=== PATIENT | male | born 1960 | race Caucasian/White ===

== ENCOUNTER → 2017-03-21 | Outpatient (CLI) | payer OTHER ==
--- NOTE | 2017-03-21 08:04 | MR ---
EXAMINATION TYPE: MR knee RT wo con DATE OF EXAM: 03/21/2017 6:56 AM COMPARISON: NONE HISTORY: Rt knee pain TECHNIQUE: Multiplanar, multisequence imaging of the right knee is performed. FINDINGS: MEDIAL MENISCUS: Complex tear posterior horn medial meniscus extending into the meniscal body. Bucket -handle component is difficult to exclude. LATERAL MENISCUS: Anterior and posterior horns are intact without tear. CRUCIATE LIGAMENTS: The anterior and posterior cruciate ligaments are intact and unremarkable. COLLATERAL LIGAMENTS: The medial collateral ligament and lateral collateral ligament complex are intact and unremarkable. EXTENSOR MECHANISM: Visualized quadriceps and patellar tendons are intact. EFFUSION: No evidence for joint effusion. POPLITEAL CYST: No popliteal/stevens cyst. TRICOMPARTMENT SPACES: Moderate patellofemoral joint space narrowing with changes of chondromalacia p atella. CARTILAGE: The articular cartilage is maintained without abnormal signal or full-thickness defect. BONE MARROW SIGNAL: No focal abnormal marrow signal is appreciated: OTHER: No additional significant abnormality is appreciated. IMPRESSION: 1. Complex tear posterior horn and body medial meniscus with bucket-handle component difficult to exc lude. 2. Changes of chondromalacia patella.
== END ==
LOC: RADMRIMAIN 06:20
PROVIDERS: ATTEND Orthopaedic Surgery
DX: M23.221 Derangement of posterior horn of medial meniscus due to old tear or injury, right knee (principal); M22.41 Chondromalacia patellae, right knee

== ENCOUNTER → 2017-10-22 | Outpatient (CLI) | payer OTHER ==
[2017-10-22 08:44] LABS: Appearance,Urine Clear (Clear); Bilirubin,Urine Negative (Negative); CH 30.4; CHCM 33.6; Glucose,Urine (UA) Negative (Negative); HCT 42.7 % (39.0-53.0); HGB 14.4 gm/dL (13.0-17.5); Ketones,Urine Negative (Negative); Leukocyte Esterase,Urine Negative (Negative); MCH 30.7 pg (25.0-35.0); MCHC 33.8 g/dL (31.0-37.0); MCV 90.9 fL (80.0-100.0); Mean Platelet Volume 7.2; Nitrite,Urine Negative (Negative); PH, Urine 5.5 (5.0-8.0); Protein,Urine Trace (Negative); RBC 4.69 m/uL (4.30-5.90); RDW 14.5 % (11.5-15.5); Specific Gravity,Urine 1.022 (1.001-1.035); UA Billing (MACRO vs. MICRO) CHEM; Urobilinogen,Urine <2.0 mg/dL (<2.0); WBC 6.5 k/uL (3.8-10.6)
[2017-10-22 08:52] LABS: Prothrombin Time 10.1 sec (9.0-12.0)
[2017-10-22 08:58] LABS: ALT 38 U/L (21-72); AST 18 U/L (17-59); Alkaline Phosphatase 71 U/L (38-126); Anion Gap 10 mmol/L; Blood Urea Nitrogen 26 mg/dL (9-20); Calcium 9.5 mg/dL (8.4-10.2); Carbon Dioxide 27 mmol/L (22-30); Chloride 106 mmol/L (98-107); Glucose 100 mg/dL (74-99); Non-African American GFR(MDRD) >60 (>60 ml/min/1.73 sqM); Potassium 4.5 mmol/L (3.5-5.1); Sodium 143 mmol/L (137-145); Total Bilirubin 0.5 mg/dL (0.2-1.3); Total Protein 6.9 g/dL (6.3-8.2)
== END | disposition home or self-care (01) ==
LOC: LABPAT 07:52
PROVIDERS: ATTEND Orthopaedic Surgery
DX: Z01.812 Encounter for preprocedural laboratory examination (principal)
CPT/HCPCS: 80053; 81003; 85027; 85610; 85730; 87070

== ENCOUNTER → 2018-06-23 | Outpatient (CLI) | payer OTHER ==
--- NOTE | 2018-06-23 11:44 | US ---
EXAMINATION TYPE: US venous doppler duplex LE LT DATE OF EXAM: 06/23/2018 11:32 AM COMPARISON: NONE CLINICAL HISTORY: M25.562 left knee pain. Patient fell on left knee and has large bump/bruise. SIDE PERFORMED: Left TECHNIQUE: The lower extremity deep venous system is examined utilizing real time linear array sonog shay with graded compression, doppler sonography and color-flow sonography. VESSELS IMAGED: External Iliac Vein (EIV) Common Femoral Vein Deep Femoral Vein Greater Saphenous Vein * Femoral Vein Popliteal Vein Proximal Calf Veins (* superficial vessels) Grayscale, color doppler, spectral doppler imaging performed of the deep veins of the left lower extr emity. There is normal flow, compressibility, vascular waveforms. Left Leg: Negative for DVT Scanned over bump/bruise, just inferior to left knee and there is a 6.5 x 1.2 x 6.7 cm complex avascu lar fluid collection, most consistent with hematoma. IMPRESSION: 1. No sonographic evidence of deep venous thrombosis within the left lower extremity. 2. Complex elongated fluid collection along the tissue planes extending over 6.7 cm that is avascular over the patient's area of bruising most compatible with hematoma. Repeat ultrasound could be perfor med if there is no clinical improvement.
== END | disposition home or self-care (01) ==
LOC: RADUSWWP 11:10
PROVIDERS: ATTEND Orthopaedic Surgery
DX: S80.02XA Contusion of left knee, initial encounter (principal); I80.9 Phlebitis and thrombophlebitis of unspecified site; Z96.652 Presence of left artificial knee joint

== ENCOUNTER → 2018-12-29 | Outpatient (CLI) | payer OTHER ==
[~2018-12-29] MED LIST: REGADENOSON 0.4 MG/5 ML SYRINGE IV ONE
--- NOTE | 2018-12-29 11:24 | NM ---
EXAMINATION TYPE: NM stress lexiscan cardiolite DATE OF EXAM: 12/29/2018 COMPARISON: NONE HISTORY: History of asthma, hypertension, hypercholesteremia, and family history of coronary artery d isease presents with chest pain TECHNIQUE: After the intravenous administration of 10.3 mCi Tc 99m Sestamibi - Cardiolite resting SP ECT images acquired 50 minutes post injection. The patient received 0.4mg Lexiscan, 25.1 mCi Tc 99m Sestamibi - Stress images obtained [address] injection FINDINGS: Review of stress and rest SPECT images demonstrates no distinct perfusion abnormality. Gated analysi s shows normal wall motion with an estimated left ventricular ejection fraction of 64 %. IMPRESSION: No scintigraphic evidence for reversible ischemia.
--- NOTE | 2018-12-29 12:39 | EST ---
EXERCISE STRESS DATE OF SERVICE: 12/29/2018 AGE: 58 SEX: Male HT: 5'8" WT: 240 pounds PROTOCOL: Lexiscan Cardiolite STAGE: DURATION OF EXERCISE: HEART RATE REST: 88 BLOOD PRESSURE REST: 149/91 MAXIMUM HEART RATE ACHIEVED: 94 MAXIMUM BLOOD PRESSURE: 184/93 85% MPHR: 100% MPHR: METS: INDICATIONS: Chest pain. CLINICAL INFORMATION: Patient was given Lexiscan injection. Peak heart rate of 94 was achieved. Maximum blood pressure of 184/93 mmHg was noted. Resting EKG shows normal sinus rhythm with normal NV interval and QRS duration and normal ST-T waves. No ST-segment depression suggestive of ischemia is noted. FINAL IMPRESSION: There is no evidence of any ST-segment changes to suggest ischemia during Lexiscan injection. The results of the nuclear study will follow. DAVID / MYNOR: [id number] /
== END | disposition home or self-care (01) ==
LOC: RADNMMAIN 07:43
PROVIDERS: ATTEND Internal Medicine
DX: R07.9 Chest pain, unspecified (principal)
CPT/HCPCS: 93017; 78452; A9500; J2785

== ENCOUNTER → 2019-12-15 | Outpatient (CLI) | payer OTHER ==
--- NOTE | 2019-12-15 11:47 | CT ---
EXAMINATION TYPE: CT abdomen pelvis wo con DATE OF EXAM: 12/15/2019 COMPARISON: HISTORY: Left flank pain, hematuria CT DLP: 2811.2 mGycm Automated exposure control for dose reduction was used. TECHNIQUE: Helical acquisition of images was performed from the lung bases through the pelvis. FINDINGS: LUNG BASES: No significant abnormality is appreciated. LIVER/GB: Stable 2 cm hypodensity within the liver most typical of a cyst. PANCREAS: No significant abnormality is seen. SPLEEN: No significant abnormality is seen. ADRENALS: No significant abnormality is seen. KIDNEYS: There is a 3 mm proximal left ureteral calculus resulting in mild to moderate left hydroneph rosis. There appear to be 2 additional ureteral calculi measuring less than 5 mm at the level the mid to upper pelvis. No right renal calculi or hydronephrosis. ADENOPATHY: None visualized. OSSEOUS STRUCTURES: Multilevel hypertrophic and degenerative changes of vertebral column. BOWEL: Changes of diverticulosis. The bowel gas pattern is nonspecific with no obstruction. OTHER: There is a diaphragmatic hernia with peritoneal fat extending along the anterior thorax. Aorta of normal caliber. Bilateral fat-containing inguinal hernia. Fat-containing periumbilical hernia not ed. IMPRESSION: 1. Mild to moderate left hydronephrosis secondary to multiple less than 5 mm left ureteral calculi. 2. Suspect a diaphragmatic hernia anteriorly intraperitoneal fat extending into the anterior thorax.
== END | disposition home or self-care (01) ==
LOC: RADCTMAIN 11:16
PROVIDERS: ATTEND Internal Medicine
DX: N13.2 Hydronephrosis with renal and ureteral calculous obstruction (principal)
CPT/HCPCS: 74176

== ENCOUNTER 2019-12-18 08:13 | Emergency (ER) | payer OTHER ==
[2019-12-18 08:22] VITALS: RESP 18; TEMP 97.8
[2019-12-18] MEDS ORDERED: SODIUM CHLORIDE 0.9% 2,000 ML IV STA (08:31)
[2019-12-18] MEDS ORDERED: HYDROmorphone 1 MG/ML 1 ML SYRINGE IVP STA ×2 (08:31→11:45)
[2019-12-18] MEDS ORDERED: KETOROLAC 30 MG/ML 1 ML VIAL IVP STA (08:31)
[2019-12-18] MEDS ORDERED: ONDANSETRON 4 MG/2 ML VIAL IVP STA (08:31)
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
[2019-12-18 08:44] LABS: Basophils # (A) 0.1 k/uL (0-0.2); Basophils % (A) 0 %; Eosinophils # (A) 0.1 k/uL (0-0.7); Eosinophils % (A) 1 %; HCT 46.4 % (39.0-53.0); HGB 15.9 gm/dL (13.0-17.5); Lymphocytes # (A) 0.9 k/uL (1.0-4.8); Lymphocytes % (A) 8 %; MCH 30.6 pg (25.0-35.0); MCHC 34.2 g/dL (31.0-37.0); MCV 89.4 fL (80.0-100.0); Mean Platelet Volume 7.1; Monocytes # (A) 0.4 k/uL (0-1.0); Monocytes % (A) 3 %; Neutrophils # (A) 9.7 k/uL (1.3-7.7); Neutrophils % (A) 87 %; Platelet Count 323 k/uL (150-450); RBC 5.19 m/uL (4.30-5.90); RDW 13.1 % (11.5-15.5); WBC 11.2 k/uL (3.8-10.6)
[2019-12-18 08:58] LABS: INR 0.9 (<1.2); Prothrombin Time 9.5 sec (9.0-12.0)
[2019-12-18 08:59] LABS: Albumin 4.5 g/dL (3.5-5.0); Calcium 9.2 mg/dL (8.4-10.2); Total Protein 7.7 g/dL (6.3-8.2)
--- NOTE | 2019-12-18 09:19 | XR ---
EXAMINATION TYPE: XR KUB DATE OF EXAM: 12/18/2019 9:10 AM CLINICAL HISTORY: History of kidney stones with left lower quadrant pain. TECHNIQUE: Two Upright KUB images of the abdomen are obtained. COMPARISON: CT abdomen and pelvis 3 days from now.. FINDINGS: Scattered gas is seen in non-distended small bowel loops. Gas and fecal material is seen in non-distended colon. Rounded densities in left pelvis consistent with phleboliths redemonstrated. Th e obstructing 3 mm proximal left ureter calculus on CT is not clearly identified on plain film. Based on patient's symptoms it is likely progressing towards the bladder. Lung bases remain clear. No pneu moperitoneum. Osseous structures are intact. IMPRESSION: As above.
[2019-12-18 10:13] LABS: Appearance,Urine Clear (Clear); Bilirubin,Urine Negative (Negative); Blood,Urine Moderate (Negative); Color,Urine Yellow; Glucose,Urine (UA) 1+ (Negative); Ketones,Urine Negative (Negative); Leukocyte Esterase,Urine Negative (Negative); Mucus,Urine Occasional /hpf; Nitrite,Urine Negative (Negative); Protein,Urine 1+ (Negative); RBC,Urine >182 /hpf (0-5); Urobilinogen,Urine <2.0 mg/dL (<2.0); WBC,Urine <1 /hpf (0-5)
[2019-12-18 12:01] VITALS: BP 153/97; PULSE 87
== END 2019-12-18 12:02 | disposition home or self-care (01) ==
LOC: EC 08:13
DX: N20.1 Calculus of ureter (principal); E78.5 Hyperlipidemia, unspecified; I10 Essential (primary) hypertension; Z79.82 Long term (current) use of aspirin; Z79.899 Other long term (current) drug therapy; Z90.49 Acquired absence of other specified parts of digestive tract
CPT/HCPCS: 36415; 93005; 80053; 82150; 83690; 85025; 85610; 85730; 81001; 74018; 99285; 96374; 96375 ×2; 96376; 96361; J2405; J1885; J1170

== ENCOUNTER → 2023-10-15 | Outpatient (CLI) | payer MEDICARE, BC ==
[2023-10-15 08:29] LABS: African American GFR (CKD) >90 (>60 ml/min/1.73 sqM); Blood Urea Nitrogen 22 mg/dL (9-20); Non-African American GFR(CKD) >90 (>60 ml/min/1.73 sqM)
--- NOTE | 2023-10-15 16:10 | CT ---
EXAMINATION TYPE: CT abdomen pelvis wo/w con DATE OF EXAM: 10/15/2023 COMPARISON: 12/15/2019 HISTORY: 63-year-old male R31.0, gross hematuria TECHNIQUE: Contiguous axial scanning of the abdomen and pelvis following administration of 100 ml Iso jm 300 IV contrast. Delayed images through the kidneys and coronal/sagittal reconstructions perform ed. CT DLP: 3681.6 mGycm Automated exposure control for dose reduction was used. FINDINGS: Heart normal size without pericardial effusion. Lung bases clear without pleural effusion. Couple tiny subcentimeter hypodensities in the liver too small for accurate CT characterization, like ly small cysts. There is a larger 3.5 cm central right liver lobe cyst. Portal venous system is paten t. No biliary ductal dilatation. Gallbladder, adrenal glands, kidneys, spleen, and pancreas within normal limits. No dilated small bowel, free fluid, or free air. No mesenteric or retroperitoneal lymphadenopathy. Tiny fatty and clinical hernia. Mild scattered stool. Left-sided colonic diverticulosis. No pericolonic inflammatory change. Bladder nondistended. Prostate gland mildly enlarged at 4.6 cm wide. No abnormal fluid collection in the pelvis or pelvic lymphadenopathy. Bones: Degenerative bony ankylosis left SI joint. Moderate degenerative disc disease L5-S1. Facet arthropathy lower lumbar spine. IMPRESSION: 1. NO NEPHROLITHIASIS OR HYDRONEPHROSIS. NO SUSPICIOUS RENAL MASS IS IDENTIFIED. 2. MILD PROSTATOMEGALY OF 4.6 CM WIDE. 3. THE BLADDER IS COLLAPSED AND NOT WELL ASSESSED BY CT. 4. LEFT-SIDED COLONIC DIVERTICULOSIS WITHOUT EVIDENCE FOR ACUTE DIVERTICULITIS.
== END | disposition home or self-care (01) ==
LOC: RADCTMAIN 07:52
PROVIDERS: ATTEND Urology
DX: R31.0 Gross hematuria (principal); N40.0 Benign prostatic hyperplasia without lower urinary tract symptoms; N32.89 Other specified disorders of bladder; K57.30 Diverticulosis of large intestine without perforation or abscess without bleeding
CPT/HCPCS: 82565; 84520; 74178; 36415; Q9967

== ENCOUNTER → 2023-12-20 | Outpatient (CLI) | payer MEDICARE, BC ==
[~2023-12-20] MED LIST changes: -REGADENOSON 0.4 MG/5 ML SYRINGE IV ONE; +REGADENOSON 0.4 MG/5 ML SYRINGE IV PRN
--- NOTE | 2023-12-20 15:18 | NM ---
EXAMINATION TYPE: NM stress lexiscan cardiolite DATE OF EXAM: 12/20/2023 COMPARISON: NONE CLINICAL INDICATION: Male, 63 years old with history of ABN ECG; TECHNIQUE: After the intravenous administration of 10.9 mCi Tc 99m Sestamibi - Cardiolite resting SP ECT images acquired 55 minutes post injection. The patient received 0.4mg Lexiscan, 25.8 mCi Tc 99m Sestamibi - Stress images obtained [address] injection FINDINGS: Review of stress and rest SPECT images demonstrates a small fixed perfusion defect along the mid infe rolateral wall. No discrete reversibility is seen. Gated analysis shows decreased augmentation of thi s portion of the wall. Estimated left ventricular ejection fraction of 52 %. TID is normal at 1.03. IMPRESSION: 1. Small fixed perfusion defect mid inferolateral wall. Correlate for small area of previous infarct. 2. No scintigraphic evidence for inducible ischemia. 3. Estimated LVEF is borderline to mildly diminished at 52%.
--- NOTE | 2023-12-20 18:33 | CA ---
Lexiscan Nuclear Stress Test Report Name: Kai Gilliland Exam Date: 12/20/2023 09:53 Exam Location: [facility] Ht (in): 68 Wt (lb): 255 BSA: 2.27 Ordering Phys: Marco A Griffith DO Referring Phys: Marco A Griffith DO Technologist: RENATO, Age: 63 Gender: M : 1960 Procedure CPT: Indications: R94.31 ABNORMAL ELECTROCARDIOGRAM [ECG] [EKG] ICD-10 Codes: Patient History: Abnormal ekg Medications: Meds past 24 hrs: Pretest Chest Pain: STRESS TEST Lexiscan Protocol Exercise Duration (min:sec): 01:[address] Depressions (mm): Angina Score: Valdez Score: Resting HR (bpm): 65 Peak HR (bpm): 87 Resting BP (mmHg): 159 / 80 Peak BP (mmHg): 162 / 76 MPHR: 155 Target HR: 132 % MPHR: 56 METS: 1.0 Total Dose: Peak Dose: Atropine: Double Product: 55384 BP Response: Stress Termination: Reached target heart rate Stress Symptoms: No chest pain or symptoms Stress Summary: ECG ANALYSIS Resting ECG: Stress ECG: CONCLUSIONS Nonspecific EKG changes in response to Lexiscan Dr. Alexander Caballero MD (Electronically Signed) Final Date: 20 December 2023 18:32
== END | disposition home or self-care (01) ==
LOC: RADNMMAIN 09:39
PROVIDERS: ATTEND Internal Medicine
DX: R94.31 Abnormal electrocardiogram [ECG] [EKG] (principal)
CPT/HCPCS: 93017; 78452; A9500; J2785

== ENCOUNTER → 2024-02-06 | Outpatient (CLI) | payer MEDICARE, BC ==
[2024-02-06 11:49] LABS: NT-Pro-B-Type Natriuretic Pept 119 pg/mL (0-125)
[2024-02-06 11:50] LABS: Albumin 4.2 g/dL (3.8-4.9); BUN/Creat Ratio 22.67 Ratio (12.00-20.00); Blood Urea Nitrogen 20.4 mg/dL (9.0-27.0); Calcium 9.5 mg/dL (8.7-10.3); Carbon Dioxide 23.5 mmol/L (21.6-31.8); Chloride 105 mmol/L (96-109); Glucose 145 mg/dL (70-110); Phosphorus 3.9 mg/dL (2.4-5.1); Potassium 4.2 mmol/L (3.5-5.5); Sodium 141 mmol/L (135-145)
== END | disposition home or self-care (01) ==
LOC: LABWHC1 08:07
PROVIDERS: ATTEND Internal Medicine
DX: I50.9 Heart failure, unspecified (principal); R06.02 Shortness of breath
CPT/HCPCS: 36415; 80069; 83880

== ENCOUNTER → 2024-04-10 | Outpatient (CLI) | payer MEDICARE, BC ==
[2024-04-10 15:25] LABS: Basophils # (A) 0.06 X 10*3/uL (0.00-0.10); Basophils % (A) 0.8 %; Eosinophils # (A) 0.21 X 10*3/uL (0.04-0.35); HCT 42.8 % (39.6-50.0); HGB 14.2 g/dL (13.0-17.0); Lymphocytes # (A) 1.74 X 10*3/uL (0.90-5.00); Lymphocytes % (A) 24.5 %; MCH 29.9 pg (27.0-32.0); MCHC 33.2 g/dL (32.0-37.0); MCV 90.1 FL (80.0-97.0); Mean Platelet Volume 9.9 FL (9.5-12.2); Monocytes % (A) 8.5 %; NRBC Per 100 WBC 0 X 10*3/uL (0.00-0.01); Neutrophils # (A) 4.45 X 10*3/uL (1.80-7.70); Neutrophils % (A) 62.6 %; Platelet Count 336 X 10*3/uL (140-440); RBC 4.75 X 10*6/uL (4.40-5.60); RDW 13.2 % (11.5-14.5)
[2024-04-10 15:42] LABS: BUN/Creat Ratio 22.45 Ratio (12.00-20.00); Blood Urea Nitrogen 24.7 mg/dL (9.0-27.0); Calcium 9.3 mg/dL (8.7-10.3); Carbon Dioxide 25.7 mmol/L (21.6-31.8); Chloride 104 mmol/L (96-109); Glucose 151 mg/dL (70-110); Potassium 4.1 mmol/L (3.5-5.5); Sodium 143 mmol/L (135-145)
== END | disposition home or self-care (01) ==
LOC: LABPAT 07:50
PROVIDERS: ATTEND Urology
DX: Z01.812 Encounter for preprocedural laboratory examination (principal); N20.0 Calculus of kidney; R31.0 Gross hematuria
CPT/HCPCS: 36415; 80048; 85025

== ENCOUNTER 2024-04-16 05:41 | Day surgery (SDC) | payer MEDICARE, BC ==
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
[2024-04-14 09:42] VITALS: BMI 39.5
[~2024-04-16 05:41] MED LIST changes: +LIDOCAINE 1% (10MG/ML) FOR IV START INTRADERMA PRN; -REGADENOSON 0.4 MG/5 ML SYRINGE IV PRN; +droPERidol 5 MG/2 ML VIAL IVP ONE
--- NOTE | 2024-04-16 06:23 | XR ---
EXAMINATION TYPE: XR KUB DATE OF EXAM: 04/16/2024 6:17 AM CLINICAL HISTORY: Kidney stone TECHNIQUE: Two supine KUB images of the abdomen are obtained. COMPARISON: CT abdomen and pelvis October 15, 2023. FINDINGS: Central approximate 8 mm calculus right kidney is redemonstrated. No definitive left-sided nephrolithiasis. Overall nonobstructive bowel gas pattern. Osseous structures are intact. IMPRESSION: As above.
[2024-04-16] MEDS: LACTATED RINGERS 1,000 ML IV SCH (06:57)
[2024-04-16] MEDS: DEXAMETHASONE SOD PHOSPHATE 4 MG/ML 1 ML VIAL IV ONE (07:04)
[2024-04-16] MEDS: ONDANSETRON 4 MG/2 ML VIAL IVP ONE (07:04)
[2024-04-16 07:12] LABS: Glucose,Whole Blood 143 mg/dL (70-110)
[2024-04-16] MEDS ORDERED: PHENYLEPHRINE 10 MG/ML VIAL ONE (07:34)
[2024-04-16] MEDS ORDERED: LIDOCAINE 1% INJ 10MG/ML (20 ML MDV) ONE (07:34)
[2024-04-16] MEDS ORDERED: GLYCOPYRROLATE 0.2 MG/ML 2 ML VIAL ONE (07:34)
[2024-04-16] MEDS ORDERED: SUCCINYLCHOLINE CHLORIDE 200 MG/10 ML VIAL IV ONE (07:34)
[2024-04-16] MEDS ORDERED: ROCURONIUM 10 MG/ML (5 ML VIAL) IV ONE (07:34)
[2024-04-16] MEDS ORDERED: NEOSTIGMINE 1 MG/ML 10 ML VIAL ONE (07:34)
[2024-04-16] MEDS ORDERED: PROPOFOL 10 MG/ML 20 ML VIAL IV ONE (07:34)
[2024-04-16] MEDS ORDERED: MIDAZOLAM 2 MG/2 ML VIAL ONE (07:34)
[2024-04-16] MEDS ORDERED: fentaNYL (PF) 50 MCG/ML 2 ML AMP ONE (07:34)
[2024-04-16] MEDS: IOPAMIDOL-370 100ML BTL MISCELLANE ONE ×2 (08:00)
[2024-04-16] MEDS: LACTATED RINGERS 1,000 ML IV ONE (08:59)
--- NOTE | 2024-04-16 09:39 | FL ---
Fluoroscopy INDICATION: Right ureteral stone FINDINGS: Fluoroscopy time: 2 minutes 19 seconds. Total dose area product (DAP) in uGy*m?, mGy*cm? (or similar): 3.07 Images obtained: 11. IMPRESSION: 1. Documentation of fluoroscopy.
[2024-04-16 09:43] LABS: Glucose,Whole Blood 183 mg/dL (70-110)
--- NOTE | 2024-04-16 09:47 | P.OP ---
Date of Procedure: 04/16/24 Preoperative Diagnosis: Gross hematuria, right renal calculus Postoperative Diagnosis: Same Procedure(s) Performed: Cystoscopy, bilateral retrograde pyelograms, right ureteroscopy with Holmium laser lithotripsy and stone basketing, right ureteral stent insertion Anesthesia: ADDIS Surgeon: Donell Yepez Estimated Blood Loss (ml): 10 IV fluids (ml): 1,000 Pathology: other (Right renal calculus fragments, sent for chemical analysis) Condition: stable Disposition: PACU Indications for Procedure: The patient is a 64-year-old white male who presented in late 2022 with gross hematuria, associated with left flank pain. CT scan showed right renal calcifications, and a could not be determined whether these were kidney stones or vascular in nature. Urine cytology was negative. The patient was recently seen back in the office, and has experienced persistent intermittent gross hematuria. Operative Findings: 6 mm right renal calculus, successfully treated with laser lithotripsy and stone basketing. Description of Procedure: The patient was taken to the operating room and placed in the dorsolithotomy position, with legs supported in Sameer stirrups. The external genitalia was prepped and draped sterilely. [place] sounds were used to dilate the urethral meatus, as it was small and would not accommodate the cystoscopic sheath. The 30 lens was used to introduce the 21-Lithuanian Childress cystoscopic sheath through the urethra and into the bladder under direct vision. The prostatic urethra showed evidence of mild lateral lobe enlargement and a high median bar. The bladder was examined in its entirety. Both ureteral orifices were normal anatomic location and configuration, and clear urine effluxed from both. No tumors or foreign bodies were seen. Using a 10 Lithuanian cone-tip catheter, bilateral retrograde pyelograms were performed in the standard fashion. The course of each ureter appeared normal. The left intrarenal collecting system appeared normal, with no evidence of hydronephrosis. There were no filling defects. The system drained promptly. On the right side, there appeared to be slight irregularity within an upper pole calyx. A 0.038 inch Glidewire was passed through the cystoscope. The right ureteral orifice was cannulated, and the Glidewire was advanced up to the renal pelvis. The cystoscope was removed, and the Childress Offbeat Guidesa flexible ureteroscope was passed over the wire, up to the right renal pelvis. A calculus was identified within an upper pole calyx, but visualization was poor and it was not possible to relocate the calculus. Therefore, the Glidewire was passed through the ureteroscope, which was removed, and an 11/13-Lithuanian ureteral access catheter was passed over the wire, up to the proximal ureter. The [employer] flexible ureteroscope was then passed through the ureteral access catheter sheath and advanced under direct vision up to the right renal pelvis. Again, the calculus could not be identified. Contrast was injected, and the calculus was seen as a filling defect within an upper pole calyx. With difficulty, the calculus was visualized. The 272 micron Holmium laser probe was passed through the ureteroscope, and lithotripsy was performed using a dusting mode. The periphery of the stone was lasered, until the main calculus measured approximately 3 mm in size. The remaining calculus fragments were all smaller than 1 mm, and a 1.9 Lithuanian 0 tip nitinol basket was used to remove the 3 mm calculus fragment, which was saved and sent for chemical analysis. At this point, fluoroscopy showed evidence of possible contrast extravasation. The Glidewire was passed through the ureteral access catheter sheath, which was then removed. A 5 Lithuanian open- ended catheter was passed over the wire, up to the right renal pelvis. Contrast was injected, and there was no evidence of contrast extravasation. Pyelovenous backflow is suspected to have given the appearance of possible extravasation. The Glidewire was backloaded into the cystoscope, which was passed into the bladder. A 26 cm, 4.8 Lithuanian double-J ureteral stent was placed over the wire. Proper stent positioning was verified fluoroscopically and endoscopically. The bladder was emptied and the cystoscope removed. The string attached to the stent was secured to the patient's penis using a Tegaderm dressing. The patient tolerated the procedure well and was taken to the recovery room in stable condition. [facility] Report: Procedure Acuity: Elective Stone Size and Location: 6 mm, right upper pole calyx Ureteral Dilation: No Ureteral Access Sheath Used: Yes Stone Sent for Analysis: Yes All Stones/Fragments Were Removed with a Basket: Yes Complications: No Preoperative Antibiotics Given: Yes Stent Placed: Yes If Stent Placed, Was String Left Attached: Yes If Stent Placed, When is it to be Removed: 1 week Discharge Medications: Toradol, tamsulosin
[2024-04-16 10:12] VITALS: RESP 16; TEMP 98
[2024-04-16] MEDS: HYDROmorphone 0.5 MG/0.5 ML SYRINGE IVP PRN (10:54)
[2024-04-16] MEDS ORDERED: KETOROLAC 15 MG/ML 1 ML VIAL ONE (11:21)
[2024-04-16] MEDS: KETOROLAC 15 MG/ML 1 ML VIAL IVP ONE (11:23)
--- NOTE | 2024-04-16 11:24 | XR ---
EXAMINATION TYPE: XR KUB portable DATE OF EXAM: 04/16/2024 COMPARISON: 04/16/2024 INDICATION: Low abdominal pain back discomfort TECHNIQUE: Single view abdomen FINDINGS: There is a normal bowel gas pattern. Psoas margins are normal. No organomegaly is present. Right ureteral stent is present. Appears to be a 0.7 cm calcification inferior pole right kidney. IMPRESSION: 1. Unremarkable Abdomen 2. Right ureteral stent. 3. 0.7 cm inferior pole right renal calcification
[2024-04-16] MEDS ORDERED: HYDROcodone/APAP 5-325MG 1 EACH TAB ONE (12:59)
[2024-04-16] MEDS: HYDROcodone/APAP 5-325MG 1 EACH TAB PO ONE (13:00)
[2024-04-16 15:05] VITALS: PULSE 96
[2024-04-16 15:59] VITALS: BP 166/65
== END 2024-04-16 15:44 | disposition home or self-care (01) ==
LOC: OR 05:41
PROVIDERS: ATTEND Urology
DX: N20.0 Calculus of kidney (principal); I10 Essential (primary) hypertension; E78.5 Hyperlipidemia, unspecified; E11.9 Type 2 diabetes mellitus without complications; J45.909 Unspecified asthma, uncomplicated; Z90.89 Acquired absence of other organs; Z90.49 Acquired absence of other specified parts of digestive tract; Z98.890 Other specified postprocedural states; Z79.82 Long term (current) use of aspirin; Z79.84 Long term (current) use of oral hypoglycemic drugs; Z96.652 Presence of left artificial knee joint
CPT/HCPCS: 82365; 74420; 74018; 52356; C2625; C1758 ×2; C1769; J2250; J0330; J1100; J2710; J0690; J2405; J2001; J3010; J1885; J2704; J1170; Q9967; J2371

== ENCOUNTER → 2024-05-29 | Outpatient (CLI) | payer MEDICARE, BC ==
--- NOTE | 2024-05-29 16:34 | US ---
EXAMINATION TYPE: US kidneys/renal and bladder DATE OF EXAM: 05/29/2024 COMPARISON: Multiple XR and CT; 04/16/2024 XR KUB CLINICAL INDICATION: Male, 64 years old with history of N20.0 CALCULUS OF KIDNEY, RIGHT; Patient dora es any signs or symptoms since lithotripsy. EXAM MEASUREMENTS: Right Kidney: 10.8 x 5.9 x 6.2 cm Left Kidney: 10.6 x 6.5 x 5.5 cm Post Void Residual Volume: NA mL Right Kidney: wnl Left Kidney: wnl Bladder: Not fully distended; WNL as visualized Bilateral Jets seen: No Normal Post Void Residual: NA There is no evidence for hydronephrosis at this point in time. No shadowing calculi seen . No agatha s are identified. Cortical medullary differentiation is maintained bilaterally. The urinary bladder is underdistended without filling defect identified. Benign thin-walled cyst is identified within the right hepatic lobe measuring up to 3.6 cm. IMPRESSION: 1. No hydronephrosis or shadowing renal calculi identified. 2. Benign hepatic cyst.
== END | disposition home or self-care (01) ==
LOC: RADUSWWP 06:43
PROVIDERS: ATTEND Urology
DX: N20.0 Calculus of kidney (principal); K76.89 Other specified diseases of liver
CPT/HCPCS: 76770

== ENCOUNTER → 2025-06-15 | Outpatient (CLI) | payer MEDICARE, BC ==
--- NOTE | 2025-06-15 11:53 | MM ---
Reason for Exam: Clinical finding. Baseline mammogram. Indicated Problems: Pain of both sides (Focal) for 3 Month(s). Prior Study Comparison: Patient's first Mammogram. Tissue Density: The breasts are heterogeneously dense, which may obscure small masses. Findings: Analyzed By CAD. Fibroglandular tissue in the retroareolar region bilaterally. Slightly more prominent on the left compared to the right. Overall Assessment: Incomplete: need additional imaging evaluation, BI-RAD 0 Management: Diagnostic Breast Ultrasound of the left breast. Results were given to the patient verbally at the time of exam. Patient should continue monthly self-breast exams. A clinical breast exam by your physician is recommended on an annual basis. This exam should not preclude additional follow-up of suspicious palpable abnormalities. Note on Suki scores and lifetime risk: 1. A Suki score greater than 3% is considered moderate risk. If this is the case, consider specialist referral to assess eligibility for a risk reducing agent. 2. If overall lifetime risk for the development of breast cancer is 20% or higher, the patient may qualify for future screening with alternating mammogram and breast MRI. [facility], , 06/15/2025 11:49 AM. Electronically signed and approved by: Chip Colby DO
--- NOTE | 2025-06-15 12:10 | USB ---
Reason for Exam: Clinical finding. Technique: Method: Targeted. Findings: The axilla of the left breast and the retroareolar of both breasts were scanned. Technique utilized:US breast limited LT Image; Ultrasound imaging of: All 4 quadrants, the retroareolar region and axilla. No evidence for organizing fluid collection or mass. Retroareolar tissue confirmed as same day mammogram, findings compatible gynecomastia. Overall Assessment: Benign, BI-RAD 2 Management: No follow up is required for this exam. A clinical breast exam by your physician is recommended on an annual basis and results should be correlated with mammographic findings. This exam should not preclude additional follow-up of suspicious palpable abnormalities. Results were given to the patient verbally at the time of exam. [facility], , 06/15/2025 12:06 PM. Electronically signed and approved by: Chip Colby DO
== END | disposition home or self-care (01) ==
LOC: RADMAMWWP 11:20
PROVIDERS: ATTEND Internal Medicine
DX: N63.20 Unspecified lump in the left breast, unspecified quadrant (principal); R92.333 Mammographic heterogeneous density, bilateral breasts
CPT/HCPCS: 77066; 76642; G0279; 77062